=== PATIENT | male | born 1980 | race African-American/Black ===

== ENCOUNTER 2017-08-19 03:53 | Emergency (ER) | payer BC | END 2017-08-19 04:33 | disposition home or self-care (01) | LOC: ER 03:53 | DX: J32.0 Chronic maxillary sinusitis (principal) | CPT/HCPCS: 71046; 99284-25 ==

== ENCOUNTER 2017-09-18 12:21 | Emergency (ER) | payer BC | END 2017-09-18 13:12 | disposition left against medical advice (07) | LOC: ER 12:21 | DX: M25.519 Pain in unspecified shoulder (principal); Z53.21 Procedure and treatment not carried out due to patient leaving prior to being seen by health care provider ==

== ENCOUNTER 2017-09-18 14:42 | Emergency (ER) | payer BC | END 2017-09-18 16:19 | disposition home or self-care (01) | LOC: ER 14:42 | DX: S46.001A Unspecified injury of muscle(s) and tendon(s) of the rotator cuff of right shoulder, initial encounter (principal); G89.29 Other chronic pain; X58.XXXA Exposure to other specified factors, initial encounter; Y93.89 Activity, other specified; Y92.89 Other specified places as the place of occurrence of the external cause; Y99.8 Other external cause status | CPT/HCPCS: 73030; 99284 ==

== ENCOUNTER → 2017-10-04 | Outpatient (CLI) | payer BC ==
[~2017-10-04] MED LIST: CONTRAST GIVEN MC
[2017-10-04] MEDS: LIDOCAINE 1% Multi-Dose 20 ML VIAL. ID (13:55)
[2017-10-04] MEDS: IOHEXOL 300 MG/ML 50 ML VIAL. INT ART (13:55)
[2017-10-04] MEDS: GADOBUTROL 7.5 MMOL/7.5 ML VIAL INT ART (13:55)
== END | disposition home or self-care (01) ==
LOC: KCIC 12:57
DX: S43.431A Superior glenoid labrum lesion of right shoulder, initial encounter (principal); M75.121 Complete rotator cuff tear or rupture of right shoulder, not specified as traumatic; X58.XXXA Exposure to other specified factors, initial encounter; Y93.89 Activity, other specified; Y92.89 Other specified places as the place of occurrence of the external cause; Y99.8 Other external cause status
CPT/HCPCS: 73040; 73222; A9585; Q9967

== ENCOUNTER 2018-02-18 15:16 | Emergency (ER) | payer BC ==
[~2018-02-18] VITALS: Ht 185.4 cm; Wt 95.3 kg
[~2018-02-18 15:16] MED LIST changes: +AZIT1PAC9 PO; -CONTRAST GIVEN MC; +DIAZ5TAB4 PO; +GUAI473L15 PO; +HYDR-971 PO; +IBUP-1060 PO
[2018-02-18 16:09] VITALS: BP 104/63
== END 2018-02-18 18:14 | disposition left against medical advice (07) ==
LOC: ER 15:16
DX: M25.511 Pain in right shoulder (principal); Z53.21 Procedure and treatment not carried out due to patient leaving prior to being seen by health care provider